=== PATIENT | male | born 1990 | race Caucasian/White ===

== ENCOUNTER 2016-04-04 17:33 | Emergency (ER) | payer OTHER ==
[2016-04-04] MEDS ORDERED: KETOROLAC TROMETHAMINE 60 MG/2 ML VIAL ONE (18:18)
[2016-04-04] MEDS ORDERED: OXYMETAZOLINE HCL 0.05% 30 SPRAYS/BOT NS ONE (18:19)
--- NOTE | 2016-04-04 18:49 | CT ---
Name: ZAHIDA TERRELL Exam: CT head without contrast Comparison: 04/04/2016 from [facility] Clinical history: Trauma Technique: Helical CT was performed through the head. Angled axial reconstructions were obtained. Sagittal and coronal reconstructions were obtained as well. No contrast was given. An automated dose reduction technique was used to minimize patient radiation dose. Findings: There is no shift of midline structures. Ventricles are of normal size and configuration. There is no mass, mass effect or hemorrhage. Cisterns are uneffaced. Posterior fossa is unremarkable. Intraorbital air is noted on the left. Patient is known to have a left facial fracture by partial outside imaging. Visualized mastoid air cells are clear. There is increased density within left nasal passage which may be blood given the recent trauma. Impression: 1. No acute intracranial process 2. Small amount of left intraorbital air. The patient is known to have a short trauma by CT earlier today. Fractures are incompletely visualized on this CT head. Note: The above report was uploaded to [facility]'s electronic medical records system at 1845 hours.
[2016-04-04] MEDS ORDERED: SULFAMETHOXAZOLE 800 MG/TRIMETHOPRIM 160 MG TABLET ONE (19:45)
== END 2016-04-04 20:10 | disposition home or self-care (01) ==
LOC: ED 17:33
DX: S02.2XXA Fracture of nasal bones, initial encounter for closed fracture (principal); S02.80XA Fracture of other specified skull and facial bones, unspecified side, initial encounter for closed fracture; S42.009A Fracture of unspecified part of unspecified clavicle, initial encounter for closed fracture; V49.9XXA Car occupant (driver) (passenger) injured in unspecified traffic accident, initial encounter; Y92.410 Unspecified street and highway as the place of occurrence of the external cause
CPT/HCPCS: 70450; 99284; 96372; 99283; A9270 ×2; J1885